=== PATIENT | male | born 1980 | race Caucasian/White ===

== ENCOUNTER 2017-03-24 12:34 | Inpatient (IN) | payer OTHER ==
[~2017-03-24] VITALS: Ht 182.9 cm; Wt 81.2 kg
--- NOTE | 2017-03-24 15:15 | NUR ---
PRE-ASSESSMENT: Pre-Assessment done at intake office, client is A/O x4, he presents with flat affect, anxious mood, and clammy skin. he stated reason for admission as "I need help or I'm going to ." T 98, RR 16, BP 124/80, HR 63, spO2 @ 99% on RA, PAIN 0/10. He is fully ambulatory. He denies any allergies; he denies any withdrawal-induced seizure. PMH: Hep C. Past Surgical hx: R clavicle fx (12/2016), R knee surgery, Hernia repair. He denies taking any home medications. Substance history Heroin $ 50.00 or 0.5-1gm IV daily for the past montn and a half, last used amount 1 gm on 03/22/17 Cocaine $10.00 worth snorted daily for a month and a half, lasu time used $10.00 on 03/23/17 Suboxone 8mg SL, one time 03/23/17 Longest period of sobriety 8 years from 2003 to 2011. Client was informed of viatl signs, controlled medication, and blood drawn policy, he verbalized understanding.
--- NOTE | 2017-03-24 15:45 | NUR ---
Admissions Note 36 year old male admitted to [facility] for withdrawal from heroin. Client reports PMH Hep C, Past Surgical hx: R clavicle fx (12/2016), R knee surgery, Hernia repair. He denies taking any home medications Client is oriented to unit, educated about protocols and how to work TV and call light in his room. Weight: 179 pounds. Height: 6'0" COWS: 8 Client appears anxious, restless, noted with clammy skin, intact abcess on R hand, he states some discomfort to touch, client is afebrile. Intact with well healed small track wilson on bilateral wrist area. Bilateral lung clear on auscultation, abdomen soft, non-tender, no edema noted. Clients voice is soft, he avoids eye contact. Client has NKA. Regular diet (No red meat/pork) ordered. Full code status ordered. Client denies any history of seizures. LBM was 03/24/17, small/brown/hard. Client denies a PCP. He refuses PNA/FLU vaccine at this time, stating he believes they don't work, written education provided to client. He gives verbal consent for HIV. Client states that he was living on his on in an apartment is [place], but has been homeless for two days. Client substance use is as follow, he first started using heroin at age 20, he has a history of 10 treatments, the last being at [facility] for 5 months before he relapse. Dr Bond assessed client. Urine was collected upon admission. All safety measures instituted. [place] precaution. Call light within reach. Will continue to monitor.
[2017-03-24] MEDS ORDERED: ONDANSETRON 4 MG/2 ML VIAL IM PRN (16:15)
[2017-03-24] MEDS ORDERED: MAG HYDROX/AL HYDROX/SIMETH 30 ML LIQUID UDC PO PRN (16:15)
[2017-03-24] MEDS ORDERED: DICYCLOMINE HCL 20 MG TABLET PO PRN (16:15)
[2017-03-24] MEDS ORDERED: HYDROXYZINE PAMOATE 25 MG CAPSULE PO PRN (16:15)
[2017-03-24] MEDS ORDERED: BUPRENORPHINE HCL 2 MG TAB.SUBL SL PRN (16:15)
[2017-03-24] MEDS ORDERED: LORAZEPAM 1 MG TABLET PO PRN (16:15)
[2017-03-24] MEDS ORDERED: ONDANSETRON ODT 4 MG TAB.RAPDIS SL PRN (16:15)
[2017-03-24] MEDS ORDERED: MAGNESIUM HYDROXIDE 30 ML LIQUID UDC PO PRN (16:15)
[2017-03-24] MEDS ORDERED: diphenhydrAMINE 50 MG CAPSULE PO PRN (16:15)
[2017-03-24] MEDS ORDERED: CLONIDINE HCL 0.1 MG TABLET PO PRN (16:15)
[2017-03-24] MEDS ORDERED: LOPERAMIDE HCL 2 MG CAPSULE PO PRN ×2 (16:15)
[2017-03-24] MEDS ORDERED: ACETAMINOPHEN 325 MG TABLET PO PRN (16:15)
[2017-03-24] MEDS ORDERED: IBUPROFEN 600 MG TABLET PO PRN (16:15)
[2017-03-24] MEDS ORDERED: MIRALAX 17 GM POWD.PACK PO PRN (16:15)
[2017-03-24 16:30] LABS: *AMPHETAMINE, URINE NEGATIVE (NEGATIVE); *BARBITURATE, URINE NEGATIVE (NEGATIVE); *CANNABINOID, URINE NEGATIVE (NEGATIVE); *COCCAINE, URINE POSITIVE (NEGATIVE); *OPIATE, URINE POSITIVE (NEGATIVE); *PHENCYCLIDINE SCREEN,URINE NEGATIVE (NEGATIVE)
[2017-03-24 16:55] VITALS: BP 115/70
[2017-03-24] MEDS: BUPRENORPHINE HCL 2 MG TAB.SUBL SL SCH ×2 (17:16→21:00)
[2017-03-24 17:34] LABS: BASOPHILS % (AUTO) 0.6 % (0.0-2.0); EOSINOPHILS # (AUTO) 0.2 K/uL (0.0-0.7); EOSINOPHILS % (AUTO) 3.5 % (0.0-7.0); HEMATOCRIT 41.6 % (40-50); HEMOGLOBIN 13.8 G/DL (14.0-18.0); LYMPHOCYTES # (AUTO) 1.5 K/UL (0.8-4.8); LYMPHOCYTES % (AUTO) 23.7 % (20.5-51.5); MEAN CORPUSCULAR HEMOGLOBIN 30.8 UUG (27.0-31.0); MEAN CORPUSCULAR HGB CONC 33 g/dL (32.0-37.0); MEAN CORPUSCULAR VOLUME 92.8 FL (82.0-92.0); MONOCYTES # (AUTO) 0.9 K/UL (0.1-1.30); MONOCYTES % (AUTO) 14.6 % (0.0-11.0); NEUTROPHILS # (AUTO) 3.7 K/UL (1.8-8.9); NEUTROPHILS % (AUTO) 57.6 % (38.5-71.5); PLATELET COUNT (AUTO) 302 K/UL (150-450); RED BLOOD CELL COUNT(AUTO) 4.48 MIL/UL (4.7-6.1); WHITE BLOOD COUNT (AUTO) 6.3 K/UL (4.0-11.2)
[2017-03-24 17:51] LABS: ETHANOL < 3 MG/DL (0-0)
[2017-03-24 17:54] LABS: ALANINE AMINOTRANSFERASE 107 U/L (16-63); ALKALINE PHOSPHATASE 90 U/L (50-136); ASPARTATE AMINOTRANSFERASE 64 U/L (15-37); BILIRUBIN,TOTAL 0.4 mg/dL (0.2-1.0); CARBON DIOXIDE 29 mmol/L (21-32); CHLORIDE 106 mmol/L (98-107); CREATININE 0.7 mg/dL (0.6-1.3); GLUCOSE 86 mg/dL (74-106); MAGNESIUM 1.9 mg/dL (1.8-2.4); POTASSIUM 3.8 mmol/L (3.5-5.1); UREA NITROGEN, BLOOD 11 mg/dL (7-18)
--- NOTE | 2017-03-24 19:15 | NUR ---
START OF SHIFT Received 36 year old male patient admitted on 03/24/17 for Heroin, Cocaine and Suboxone dependency. Pt is full code iwth NKA. He is on regular diet but does not eat red meat or pork. He reports a PMHx of Hep C, and past surgical history of right clavicle repair, right knee surgery, and hernia repair. He reports using Heroin IV 0.5 -1 gram daily for 1.5 months. Last dose was 1 gram on 03/22/17, Cocaine (snort) $10 daily for 1.5 months. Last dose was $10 on 03/23/17, and Suboxone 8 mg SL one time. Last dose was 8 mg on 03/23/17. Pt currently receiving 5 day Subutex taper started today at 1700. Pt is tolerating well. Pt is on Clindamycin 300 mg TID x7 days for infection ( right hand cellulitis). Pt is alert and oriented x4, breathing is even and unlabored. Safety measures in place. Will monitor.
--- NOTE | 2017-03-24 19:16 | NUR ---
END OF SHIFT Endorsed client to incoming nurse, client is a 36 yo male, admitted to [facility] for withdrawal from heroin. He IS ON 5 day Subutex taper, tolerating well.Last COWS 8 @ 1600. Client is in room, sound asleep, easy to arouse, RR 16 even, non-labored. Adequate PO fluid intake 1210mL, void x 1, stool x 1. Client reported NKA, full code, regular diet (except red meat/pork). Client denies a hx of withdrawal-induced seizure. Side rails x 2 up, bed in lowest/lock position. Call light within reach.
[2017-03-24 20:00] VITALS: BP 99/60
--- NOTE | 2017-03-24 21:00 | NUR ---
MEDICATION REFUSAL Pt refused 2100 dose of Subutex 4mg. Risks and benefits explained x3. Pt still refused. Will continue to monitor.
[2017-03-24] MEDS: CLINDAMYCIN HCL 300 MG CAPSULE PO SCH (21:25)
[2017-03-24] MEDS: LACTOBACILLUS RHAMNOSUS GG 1 EACH CAPSULE PO SCH (21:25)
--- NOTE | 2017-03-25 | NUR ---
VITALS REFUSED/COWS DEFERRED 0000 vitals refused by pt. Risks/benefits explained. Pt still refused. COWS deferred d/t pt lying in bed with eyes closed noted to be asleep. Respirations 16, breathing is even and unlabored. Safety measures in place. Will monitor.
--- NOTE | 2017-03-25 04:00 | NUR ---
VITALS REFUSED/COWS DEFERRED 0400 vitals refused by pt. COWS deferred d/t pt lying in bed with eyes closed noted to be asleep. Respirations 16, breathing is even and unlabored. Safety measures in place. Will monitor.
--- NOTE | 2017-03-25 07:13 | NUR ---
END OF SHIFT Pt is a 36 year old male patient admitted on 03/24/17 for Heroin, Cocaine and Suboxone dependency. Pt is full code iwth NKA. He reports a PMHx of Hep C, and past surgical history of right clavicle repair, right knee surgery, and hernia repair. Pt currently receiving 5 day Subutex taper started 03/24/17 at 1700. Pt refused 2100 dose of Subutex. He is currently receiving Clindamycin 300 mg TID x7 days for infection ( right hand cellulitis). He did not receive or request PRN medications. He slept a total of 11hrs, Intake:350mL Void:x1 BM:0 COWS:6. Pt remains alert and oriented x4, breathing is even and unlabored. Safety measures in place. Endorsed to oncoming shift.
--- NOTE | 2017-03-25 07:35 | NUR ---
START OF SHIFT Pt is a 36 yr old male, A&OX4. pt was admitted on 03/24/17 for Opiate Dependence and is on 5 day Subutex taper as ordered. Received report from night club manager nurse. Pt slept for 11 hrs. No PRN's were given during the night. Pt is on ATB for right hand cellulitis. No adverse reaction noted. Pt is currently in bed resting with respirations even and unlabored. Pt is c/o generalized body aches /10. Skin is intact, warm and dry to touch. No tremors seen or felt. Pt denies any n/v. Encouraged increase fluid intake. Safety precautions observed. Call light is within reach. Will continue to monitor.
[2017-03-25 08:00] VITALS: BP 122/78
[2017-03-25] MEDS: LACTOBACILLUS RHAMNOSUS GG 1 EACH CAPSULE PO SCH ×2 (08:48→20:53)
[2017-03-25] MEDS: CLINDAMYCIN HCL 300 MG CAPSULE PO SCH ×3 (08:49→20:53)
[2017-03-25] MEDS: MULTIVITAMINS,THERAPEUTIC TABLET PO SCH (08:49)
[2017-03-25] MEDS: BUPRENORPHINE HCL 2 MG TAB.SUBL SL SCH ×3 (08:49→20:54)
[2017-03-25] MEDS: METHOCARBAMOL 750 MG TABLET PO PRN (08:58)
--- NOTE | 2017-03-25 08:58 | NUR ---
PRN GIVEN Pt c/o generalized body aching. Robaxin 750mg PO PRN was given as ordered, Medication kaden well. Encouraged increase fluid intake. Will continue to monitor.
[2017-03-25] MEDS ORDERED: TUBERCULIN,PURIF.PROT.DERIV. 5 TU/0.1 ML TEST ID ONE (09:00)
--- NOTE | 2017-03-25 10:00 | NUR ---
PRN RE-ASSESSMENT Robaxin 750mg PO PRN was effective. Pt states he still has body aches but pain level subsided to 3/10. Encouraged increase fluid intake. Will continue to monitor.
[2017-03-25 12:00] VITALS: BP 113/69
[2017-03-25 16:00] VITALS: BP 116/68
--- NOTE | 2017-03-25 18:59 | NUR ---
END OF SHIFT Pt is a 36 yr old male, A&OX4. pt was admitted on 03/24/17 for Opiate Dependence and is on 5 day Subutex taper as ordered. Pt is on ATB for right hand cellulitis. No adverse reaction noted. Pt has been cooperative with medication regimen and plan of care. Robaxin PRN was given at 0858 for muscle aches. Medication was effective. Last COWS score was 3 at 1600. Pt is in stable condition. Skin is intact, warm and moist to touch. Fine tremors are seen. Pt denies any n/v. Encouraged increase fluid intake. Safety precautions observed. Call light is within reach.
--- NOTE | 2017-03-25 19:15 | NUR ---
START OF SHIFT Received 36 year old male patient admitted on 03/24/17 for Heroin, Cocaine and Suboxone dependency. Pt is full code with NKA. He is on regular diet but does not eat red meat or pork. He reports a PMHx of Hep C, and past surgical history of right clavicle repair, right knee surgery, and hernia repair. He reports using Heroin IV 0.5 -1 gram daily for 1.5 months. Last dose was 1 gram on 03/22/17, Cocaine (snort) $10 daily for 1.5 months. Last dose was $10 on 03/23/17, and Suboxone 8 mg SL one time. Last dose was 8 mg on 03/23/17. Pt currently receiving 5 day Subutex taper started on 03/24/17 at 1700. He is tolerating well. Pt continues on Clindamycin 300 mg TID x7 days for infection ( right hand cellulitis). Per endorsement, pt received PRN Robaxin. Pt is alert and oriented x4, breathing is even and unlabored. Safety measures in place. Will monitor.
[2017-03-25 20:00] VITALS: BP 112/62
--- NOTE | 2017-03-26 | NUR ---
VITALS REFUSED/COWS DEFERRED 0000 vitals refused. COWS deferred. Pt is lying in bed with eyes closed noted to be asleep. Respirations 16, breathing is even and unlabored. Safety measures in place. Will monitor.
--- NOTE | 2017-03-26 04:00 | NUR ---
VITALS REFUSED/COWS DEFERRED 0400 vitals refused. COWS deferred. Pt is lying in bed with eyes closed noted to be asleep. Respirations 16, breathing is even and unlabored. Safety measures in place. Will continue to monitor.
--- NOTE | 2017-03-26 07:17 | NUR ---
END OF SHIFT Pt is a 36 year old male patient admitted on 03/24/17 for Heroin, Cocaine and Suboxone dependency. Pt is full code iwth NKA. He is on regular diet but does not eat red meat or pork. He reports a PMHx of Hep C, and past surgical history of right clavicle repair, right knee surgery, and hernia repair. He continues on a 5 day Subutex taper. He is currently on day 3/5 and it tolerating well. Pt continues on Clindamycin 300 mg TID x7 days for infection ( right hand cellulitis). He did not receive or request PRN medications. He slept a total of 9 hrs, Intake: 1000mL, Void: x3, BM:0, COWS: 5. Pt remains alert and oriented x4, breathing is even and unlabored. Safety measures in place. Will endorse to oncoming shift.
--- NOTE | 2017-03-26 07:30 | NUR ---
START OF SHIFT Pt is a 36 yr old male, AA&Ox4. pt was admitted on 03/24/17 for Opiate Dependence and is on 5 day Subutex taper as ordered. Received report from night nurse nurse. Pt slept for 9 hrs. No PRN's were given during the night. Pt continues on ATB for right hand cellulitis. No adverse reaction noted. Pt denies any anxiety. Pt is c/o generalized body aches 4/10. Skin is intact, warm and dry to touch. No tremors seen or felt. Pt denies any n/v. Encouraged increase fluid intake. Safety precautions observed. Call light is within reach. Will continue to monitor.
[2017-03-26 08:00] VITALS: BP 121/84
[2017-03-26] MEDS ORDERED: BUPRENORPHINE HCL 2 MG TAB.SUBL SL SCH (09:00)
[2017-03-26] MEDS: MULTIVITAMINS,THERAPEUTIC TABLET PO SCH (09:16)
[2017-03-26] MEDS: LACTOBACILLUS RHAMNOSUS GG 1 EACH CAPSULE PO SCH ×2 (09:16→20:53)
[2017-03-26] MEDS: CLINDAMYCIN HCL 300 MG CAPSULE PO SCH ×3 (09:16→20:52)
[2017-03-26] MEDS: METHOCARBAMOL 750 MG TABLET PO PRN (09:21)
--- NOTE | 2017-03-26 09:21 | NUR ---
PRN RE-ASSESSMENT Robaxin PRN was effective. Pt denies any pain or discomfort. Encouraged increase fluid intake. Will continue to monitor.
--- NOTE | 2017-03-26 09:21 | NUR ---
PRN GIVEN Pt c/o generalized body aching 09/19. Robaxin 750mg PO PRN was given as order. Medication kaden well. Encouraged increase fluid intake. Will continue to monitor.
[2017-03-26 11:06] LABS: HEPATITIS B SURFACE AG Negative (Negative)
[2017-03-26 12:00] VITALS: BP 127/76
[2017-03-26] MEDS: BUPRENORPHINE HCL 2 MG TAB.SUBL SL SCH ×2 (14:57→20:54)
[2017-03-26 16:00] VITALS: BP 129/79
--- NOTE | 2017-03-26 19:00 | NUR ---
END OF SHIFT Pt is a 36 yr old male, AA&OX4. pt was admitted on 03/24/17 for Opiate Dependence and is on 5 day Subutex taper as ordered. Pt has been cooperative with medication regimen and plan of care. Pt has been offered to attend group therapy but pt refused to attended. Robaxin PRN was given at 0921 for muscle aches. Medication was effective. Last COWS score was 3 at 1600. Pt remains on ATB for right hand cellulitis. No adverse reaction noted. Encouraged increase fluid intake. Pt denies any anxiety or agitation. Skin is intact, warm and dry to touch. No tremors seen or felt. Pt denies any n/v. Safety precautions observed. Call light is within reach.
--- NOTE | 2017-03-26 19:15 | NUR ---
START OF SHIFT Received 36 year old male patient admitted on 03/24/17 for Heroin, Cocaine and Suboxone dependency. Pt is full code with NKA. He is on regular diet but does not eat red meat or pork. He reports a PMHx of Hep C, and past surgical history of right clavicle repair, right knee surgery, and hernia repair. He reports using Heroin IV 0.5 -1 gram daily for 1.5 months. Last dose was 1 gram on 03/22/17, Cocaine (snort) $10 daily for 1.5 months. Last dose was $10 on 03/23/17, and Suboxone 8 mg SL one time. Last dose was 8 mg on 03/23/17. Pt currently receiving 5 day Subutex taper, and is tolerating well. Pt continues on Clindamycin 300 mg TID x7 days for infection ( right hand cellulitis). Per endorsement, pt received PRN Robaxin at 0900. Pt is alert and oriented x4, breathing is even and unlabored. Safety measures in place. Will monitor.
[2017-03-26 20:00] VITALS: BP 125/86
--- NOTE | 2017-03-27 | NUR ---
VITALS REFUSED/COWS DEFERRED 0000 vitals refused. COWS deferred d/t pt is lying in bed with eyes closed noted to be asleep. Respirations 16, breathing is even and unlabored. Safety measures in place. Will monitor
--- NOTE | 2017-03-27 04:00 | NUR ---
VITALS REFUSED/COWS DEFERRED 0400 vitals refused. COWS deferred d/t pt is lying in bed with eyes closed noted to be asleep. Respirations 16, breathing is even and unlabored. Safety measures in place. Will monitor
--- NOTE | 2017-03-27 07:16 | NUR ---
END OF SHIFT Pt is a 36 year old male patient admitted on 03/24/17 for Heroin, Cocaine and Suboxone dependency. Pt is full code with NKA. He is on regular diet but does not eat red meat or pork. He reports a PMHx of Hep C, and past surgical history of right clavicle repair, right knee surgery, and hernia repair. Pt continues on 5 day Subutex taper, and Clindamycin 300 mg TID x7 days for infection ( right hand cellulitis). He is tolerating well. He did not receive or request PRN medications. He slept a total of 10hrs, Intake 1399mL, Void: x3, BM:0, COWS: 4. Pt remains alert and oriented x4, breathing is even and unlabored. Safety measures in place. Endorsed to oncoming shift.
--- NOTE | 2017-03-27 07:30 | NUR ---
START OF SHIFT Pt is a 36 yr old male, AA&Ox4. pt was admitted on 03/24/17 for Opiate Dependence and is on 5 day Subutex taper as ordered. Received report from police shift commander nurse. Pt slept for 10 hrs. No PRN's were given during the night. Pt continues on ATB for right hand cellulitis. No adverse reaction noted. Pt denies any anxiety. Skin is intact, warm and dry to touch. No tremors seen or felt. Pt denies any n/v or pain. Encouraged increase fluid intake. Safety precautions observed. Call light is within reach. Will continue to monitor.
[2017-03-27 08:00] VITALS: BP 134/87
[2017-03-27] MEDS: METHOCARBAMOL 750 MG TABLET PO PRN (09:02)
[2017-03-27] MEDS: MULTIVITAMINS,THERAPEUTIC TABLET PO SCH (09:02)
[2017-03-27] MEDS: BUPRENORPHINE HCL 2 MG TAB.SUBL SL SCH ×3 (09:02→20:40)
[2017-03-27] MEDS: CLINDAMYCIN HCL 300 MG CAPSULE PO SCH ×3 (09:02→20:39)
[2017-03-27] MEDS: LACTOBACILLUS RHAMNOSUS GG 1 EACH CAPSULE PO SCH ×2 (09:02→20:39)
--- NOTE | 2017-03-27 09:02 | NUR ---
PRN GIVEN Pt c/o muscle aching 09/19. Robaxin PO PRN was given as ordered. Medication kaden well. will continue to monitor.
--- NOTE | 2017-03-27 10:02 | NUR ---
PRN RE-ASSESSMENT Robaxin PRN was effective. Encouraged increase fluid intake. Will continue to monitor.
[2017-03-27 12:00] VITALS: BP 112/69
[2017-03-27 16:00] VITALS: BP 124/82
--- NOTE | 2017-03-27 18:45 | NUR ---
END OF SHIFT Pt is a 36 yr old male, AA&OX4. pt was admitted on 03/24/17 for Opiate Dependence and is on 5 day Subutex taper as ordered. Pt has been cooperative with medication regimen and plan of care. Pt has been offered to attend group therapy but pt refused to attended. Robaxin PRN was given at 0902 for muscle aches. Medication was effective. Last COWS score was 1 at 1600. Pt remains on ATB for right hand cellulitis. No adverse reaction noted. Encouraged increase fluid intake. Pt denies any anxiety or agitation. Skin is intact, warm and dry to touch. No tremors seen or felt. Pt denies any n/v. Safety precautions observed. Call light is within reach.
[2017-03-27 20:00] VITALS: BP 110/69
--- NOTE | 2017-03-27 20:00 | NUR ---
Start of Shift Pt is a 36 year old male admitted for Opiate dependence, placed on 4 day Subutex taper. Pt reported using Heroin IV 0.5 1 g/daily and cocaine$10.00 worth/daily. Pt reported he used Suboxone 8mg SL once on 03/23/2017. PMH: Hep C, Past surgical hx: Right clavicle fx, right knee surgery and hernia repair. NKA, fall precautions, regular diet and full code. Upon assessment, pt reports feeling mildly anxious, respirations even/unlabored, denies SOB/chest pain, skin clammy/flushed, denies n/v/d, medications due, safety measures in place, call light within reach, side rails up x2, bed locked and in low position. Will continue to monitor.
[2017-03-28] VITALS: BP 94/57
[2017-03-28 04:00] VITALS: BP 115/75
--- NOTE | 2017-03-28 04:00 | NUR ---
Vital Signs/COWS Deferred BP 115/75, pulse 56, resp 14, SpO2 100%, temp 97.9, no pain COWS deferred due to pt sleeping, to assess while pt is awake as ordered Safety measures in place. Will continue to monitor
--- NOTE | 2017-03-28 07:00 | NUR ---
End of Shift Pt is a 36 year old male admitted for Opiate dependence, placed on 4 day Subutex taper. Pt reported using Heroin IV 0.5 1 g/daily and cocaine$10.00 worth/daily. Pt reported he used Suboxone 8mg SL once on 03/23/2017. PMH: Hep C, Past surgical hx: Right clavicle fx, right knee surgery and hernia repair. NKA, fall precautions, regular diet and full code. During shift, pt reported feeling mildly anxious - scheduled taper medications administered, effective in management of s/s of withdrawal, COWS 1. No PRN medications administered during shift. Pt slept for 7 hours, intake of 1740 ml PO, voids x3 and stool x1 . Safety measures in place, call light within reach, side rails up x2, bed locked and in low position. Endorsed to day shift nurse.
--- NOTE | 2017-03-28 07:39 | NUR ---
Start of shift note; Received report from night nurse. Patient is a 36 year old male admitted on 03/24/17 for Opiate dependence. Patient was placed on a 4 day Subutex taper , no adverse reactions noted. Patient is on full code status, NKA. Patient reported history of Hepatitis C and past surgical history on right clavicle, right knee surgery. Patient's last COWS score is 1 at 0400. Patient had an uneventful night. Patient is on fall precaution. Bed in lowest position, call light within reach. Will continue to monitor patient.
[2017-03-28 08:00] VITALS: BP 105/65
[2017-03-28] MEDS: MULTIVITAMINS,THERAPEUTIC TABLET PO SCH (08:15)
[2017-03-28] MEDS: LACTOBACILLUS RHAMNOSUS GG 1 EACH CAPSULE PO SCH ×2 (08:15→21:00)
[2017-03-28] MEDS: CLINDAMYCIN HCL 300 MG CAPSULE PO SCH ×3 (08:15→20:14)
[2017-03-28] MEDS ORDERED: BUPRENORPHINE HCL 2 MG TAB.SUBL SL SCH (09:00)
[2017-03-28 12:00] VITALS: BP 121/71
[2017-03-28] MEDS ORDERED: METH-406 PO (14:02)
[2017-03-28] MEDS ORDERED: CLIN300C3 PO (14:02)
[2017-03-28] MEDS ORDERED: HYDR-3895 PO (14:02)
[2017-03-28] MEDS ORDERED: IBUP-1955 PO (14:02)
[2017-03-28] MEDS ORDERED: DICY20TA28 PO (14:02)
[2017-03-28] MEDS ORDERED: DIPH50CA37 PO (14:02)
[2017-03-28] MEDS ORDERED: LACT1CAP57 PO (14:02)
--- NOTE | 2017-03-28 15:52 | NUR ---
PRN medication; Patient is complaining of pain/headache. PRN Motrin 600mg PO given for pain. Will continue to monitor patient for effectiveness of medication.
[2017-03-28 16:00] VITALS: BP 120/79
--- NOTE | 2017-03-28 16:52 | NUR ---
Re-assessment; Patient denies pain at this time. PRN medication is effective.
--- NOTE | 2017-03-28 18:02 | NUR ---
End of shift note; Patient is AOX4. Patient is a 36 year old male admitted on 03/24/17 for Opiate dependence. Patient was placed on a 4 day Subutex taper , no adverse reactions noted. Patient is on full code status, NKA. Patient reported history of Hepatitis C and past surgical history on right clavicle, right knee surgery. Patient's last COWS score is 1 at 1600.Patient is on fall precaution. Bed in lowest position, call light within reach. Patient remained compliant with treatment plan and medication regime.Met all needs.
[2017-03-28 20:00] VITALS: BP 132/78
--- NOTE | 2017-03-28 20:00 | NUR ---
Start of Shift Pt is a 36 year old male admitted for Opiate dependence, placed on 4 day Subutex taper completed. Pt reported using Heroin IV 0.5 1 g/daily and cocaine$10.00 worth/daily. Pt reported he used Suboxone 8mg SL once on 03/23/2017. PMH: Hep C, Past surgical hx: Right clavicle fx, right knee surgery and hernia repair. NKA, fall precautions, regular diet and full code. Upon assessment, pt is alert/oriented x4, respirations even/unlabored, denies SOB/chest pain, skin clammy/flushed, denies n/v/d. Pt is scheduled for discharge tomorrow. Safety measures in place, call light within reach, side rails up x2, bed locked and in low position. Will continue to monitor.
--- NOTE | 2017-03-29 | NUR ---
Pt refused to be woken up for 0000 VS COWS deferred due to pt sleeping, to assess while pt is awake as ordered Safety measures in place, will continue to monitor.
--- NOTE | 2017-03-29 04:00 | NUR ---
Pt refused to be woken up for 0400 VS COWS deferred due to pt sleeping, to assess while pt is awake as ordered Safety measures in place, will continue to monitor.
--- NOTE | 2017-03-29 07:00 | NUR ---
End of Shift Pt is a 36 year old male admitted for Opiate dependence, placed on 4 day Subutex taper completed. Pt reported using Heroin IV 0.5 1 g/daily and cocaine$10.00 worth/daily. Pt reported he used Suboxone 8mg SL once on 03/23/2017. PMH: Hep C, Past surgical hx: Right clavicle fx, right knee surgery and hernia repair. NKA, fall precautions, regular diet and full code. During shift, pt alert/oriented x4, respirations even/unlabored, denied SOB/chest pain, medications administered. Pt refused scheduled [place] education provided regarding risk/benefits. No s/s of acute withdrawal noted, COWS 1. Pt is scheduled for discharge today. Pt slept for 5 hours, intake of 1500 ml PO, voids x3 and stool x0. Safety measures in place, call light within reach, side rails up x2, bed locked and in low position. Endorsed to day shift nurse.
--- NOTE | 2017-03-29 07:35 | NUR ---
Start of shift note; Received report from night nurse. Patient is a 36 year old male admitted on 03/24/17 for Opiate dependence. Patient was placed on a 4 day Subutex taper , no adverse reactions noted. Patient is on full code status, NKA. Patient reported history of Hepatitis C and past surgical history on right clavicle, right knee surgery. Patient's last COWS score is 1 at 0400. Patient had an uneventful night. Patient is on fall precaution. Bed in lowest position, call light within reach. Patient is medically cleared for discharge today. Will continue to monitor patient.
[2017-03-29 08:00] VITALS: BP 105/72
[2017-03-29] MEDS: MULTIVITAMINS,THERAPEUTIC TABLET PO SCH (08:27)
[2017-03-29] MEDS: CLINDAMYCIN HCL 300 MG CAPSULE PO SCH (08:27)
[2017-03-29] MEDS: LACTOBACILLUS RHAMNOSUS GG 1 EACH CAPSULE PO SCH (08:33)
--- NOTE | 2017-03-29 09:30 | NUR ---
Discharge note; Patient is AOX4. Patient is medically cleared for discharge. All patient's valuables, belongings and prescriptions were given to patient. Patient completed taper without any adverse reactions. Met all patient's needs.
== END 2017-03-29 10:04 | disposition other institution (70) | DRG 895 ==
LOC: SRC 14:41
PROVIDERS: ADMIT Internal Medicine; ATTEND Internal Medicine
PROC: HZ2ZZZZ Detoxification Services for Substance Abuse Treatment (ICD-10-PCS; principal; 2017-03-24)
PROC: HZ31ZZZ Individual Counseling for Substance Abuse Treatment, Behavioral (ICD-10-PCS; 2017-03-27)
DX: F11.23 Opioid dependence with withdrawal (principal); B18.2 Chronic viral hepatitis C; D63.8 Anemia in other chronic diseases classified elsewhere; F10.11 Alcohol abuse, in remission; S61.431S Puncture wound without foreign body of right hand, sequela; L03.113 Cellulitis of right upper limb; Y90.0 Blood alcohol level of less than 20 mg/100 ml; Z59.1 Inadequate housing; X78.8XXS Intentional self-harm by other sharp object, sequela; F14.23 Cocaine dependence with withdrawal; Z87.81 Personal history of (healed) traumatic fracture
CPT/HCPCS: 36415; 80307; 80353; 80361; 83735; 85025; 86580; 86592; 86705; 86803; 87340; 87806; G0480